=== PATIENT | male | born 1975 | race Two or more races ===

== ENCOUNTER 2017-08-18 13:09 | Emergency (ER) | payer MEDICAID, OTHER ==
--- NOTE | 2017-08-18 14:18 | EDPHY ---
H & P Stated Complaint: rectal pain with BM Time Seen by Provider: 08/18/17 14:00 HPI/ROS: CHIEF COMPLAINT: "I feel like I have to go to the bathroom all the time" HISTORY OF PRESENT ILLNESS: 41-year-old male history of ulcerative colitis, followed by Gastroenterology at [facility], complaining of 3 weeks of progressive tenesmus . No fever or chills. No nausea or vomiting. No abdominal pain. No genitalia complaints, no dysuria no hematuria increased frequency. REVIEW OF SYSTEMS: A ten point review of systems was performed and is negative with the exception of the items mentioned in the HPI PAST MEDICAL & SURGICAL HISTORY: Ulcerative colitis. On Q8 week Entyvio treatments SOCIAL HISTORY: Nonsmoker. PHYSICAL EXAM (Prior to examination, patient consented to physical exam, hands were washed and my usual and customary physical exam procedures followed) 1) GENERAL: Well-developed, well-nourished, alert and oriented. Appears to be in no acute distress. 2) HEAD: Normocephalic, atraumatic 3) HEENT: Pupils equal, round, reactive to light bilaterally. Sclera anicteric. [Nasopharynx, oropharynx, clear, no lesions. Moist mucous membranes 4) NECK: Full range of motion, no meningeal signs. 5) LUNGS: Clear auscultation bilaterally, no wheezes, no rhonchi, no retractions. 6) HEART: Regular rate and rhythm, no murmur, no heave, no gallop. 7) ABDOMEN: No guarding, no rebound, no focal tenderness, negative McBurney's, negative Metz's, negative Rovsing's, negative peritoneal sign, 8) MUSCULOSKELETAL: Moving all extremities, no focal areas of tenderness, no obvious trauma. No peripheral edema or discoloration. 9) BACK: No CVA tenderness, no midline vertebral tenderness, no fluctuance, no step-off, no obvious trauma, no visual or palpable abnormality. 10) SKIN: No rash, no petechiae. 11) : Circumcised no testicular pain. No perineal pain or fluctuance. No scrotal abnormality such as Aaliyah's gangrene. Rectal examination reveals no prostatic enlargement or tenderness. DIFFERENTIAL DIAGNOSIS: In no particular order including but not limited to prostatitis, perirectal abscess, diverticulitis, diverticular abscess - Personal History Current Tetanus/Diphtheria Vaccine: Yes Current Tetanus Diphtheria and Acellular Pertussis (TDAP): Yes - Medical/Surgical History Hx Asthma: No Hx Chronic Respiratory Disease: No Hx Diabetes: No Hx Cardiac Disease: No Hx Renal Disease: No Hx Cirrhosis: No Hx Alcoholism: No Hx HIV/AIDS: No Hx Splenectomy or Spleen Trauma: No Other PMH: Ulcerative colitis - Social History Smoking Status: Never smoked Constitutional: Initial Vital Signs Temperature (C) 37 C 08/18/17 13:17 Heart Rate 92 08/18/17 13:17 Respiratory Rate 16 08/18/17 13:17 Blood Pressure 144/84 H 08/18/17 13:17 O2 Sat (%) 95 08/18/17 13:17 O2 Delivery Mode Room Air Allergies/Adverse Reactions: No Known Allergies Allergy (Verified 08/18/17 13:15) Home Medications: Medication Instructions Recorded Bentyl 10 MG (*) 08/18/17 Medical Decision Making - Diagnostics Imaging Results: Imaging Impressions Abdomen CT 08/18/17 14:44 Impression: 1. Possible mild long segment of wall thickening in the rectosigmoid junction, with no surrounding inflammatory change. Small lymph nodes in the perirectal fat, which could be from chronic inflammation. No evidence for a perirectal abscess. 2. Fatty infiltration of the liver. Results called and discussed with Kaveh Judge PA-C, at August 18, 2017 at 1518. Images reviewed myself ED Course/Re-evaluation: Patient re-evaluated with serial examinations. Most recently at 3:57 p.m. The patient appears well. Discussed his diagnostic studies showing no evidence of perirectal abscess, no evidence of diverticulitis or diverticular abscess. Doubt acute surgical abdominal pathology. At this time I do not identify indication for hospitalization or emergent GI consultation. I did recommend he follow up with supply chain engineer at [facility] in the next few days (today is ). He feels comfortable with this plan. Usual customary abdominal precautions instructions provided. Care of patient under supervision of secondary supervising physician Dr Pritchard . - Data Points Laboratory Results: Laboratory Results 08/18/17 14:30 08/18/17 14:30 08/18/17 08/18/17 08/18/17 14:32 14:30 14:30 WBC 6.05 10^3/uL 10^3/uL (3.80-9.50) RBC 5.20 10^6/uL 10^6/uL (4.40-6.38) Hgb 15.3 g/dL g/dL (13.7-17.5) POC Hgb 14.6 gm/dL gm/dL (13.7-17.5) Hct 43.3 % % (40.0-51.0) POC Hct 43 % % (40-51) MCV 83.3 fL fL (81.5-99.8) MCH 29.4 pg pg (27.9-34.1) MCHC 35.3 g/dL g/dL (32.4-36.7) RDW 13.5 % % (11.5-15.2) Plt Count 213 10^3/uL 10^3/uL (150-400) MPV 9.1 fL fL (8.7-11.7) Neut % (Auto) 52.2 % % (39.3-74.2) Lymph % (Auto) 34.7 % % (15.0-45.0) Sterling % (Auto) 10.4 % % (4.5-13.0) Eos % (Auto) 1.5 % % (0.6-7.6) Baso % (Auto) 0.7 % % (0.3-1.7) Nucleat RBC Rel Count 0.0 % % (0.0-0.2) Absolute Neuts (auto) 3.16 10^3/uL 10^3/uL (1.70-6.50) Absolute Lymphs (auto) 2.10 10^3/uL 10^3/uL (1.00-3.00) Absolute Monos (auto) 0.63 10^3/uL 10^3/uL (0.30-0.80) Absolute Eos (auto) 0.09 10^3/uL 10^3/uL (0.03-0.40) Absolute Basos (auto) 0.04 10^3/uL 10^3/uL (0.02-0.10) Absolute Nucleated RBC 0.00 10^3/uL 10^3/uL (0-0.01) Immature Gran % 0.5 % % (0.0-1.1) Immature Gran # 0.03 10^3/uL 10^3/uL (0.00-0.10) POC Sodium 143 mEq/L mEq/L (135-145) Sodium 141 mEq/L mEq/L (135-145) POC Potassium 4.2 mEq/L mEq/L (3.3-5.0) Potassium 4.5 mEq/L mEq/L (3.5-5.2) POC Chloride 104 mEq/L mEq/L (97-110) Chloride 105 mEq/L mEq/L (97-110) Carbon Dioxide 26 mEq/l mEq/l (22-31) Anion Gap 10 mEq/L mEq/L (8-16) POC BUN 8 mg/dL mg/dL (7-23) BUN 9 mg/dL mg/dL (7-23) Creatinine 0.8 mg/dL mg/dL (0.7-1.3) POC Creatinine 0.8 mg/dL mg/dL (0.7-1.3) Estimated GFR > 60 Glucose 85 mg/dL mg/dL (70-100) POC Glucose 89 mg/dL mg/dL (70-100) Calcium 9.5 mg/dL mg/dL (8.5-10.4) Point of Care Test Results: 08/18/17 14:32 POC Sodium 143 POC Potassium 4.2 POC Chloride 104 POC BUN 8 POC Creatinine 0.8 POC Glucose 89 Departure - Departure Disposition: Home, Routine, Self-Care Clinical Impression: Rectal tenesmus Condition: Good Instructions: Rectal Pain (ED) Additional Instructions: Return to the ER if you develop abdominal pain nausea vomiting or any other symptoms that concern you. Referrals: [facility] [Other] - 1-2 days without fail
[2017-08-18 14:38] LABS: PLATELET COUNT 213 10^3/uL (150-400)
[2017-08-18] MEDS ORDERED: IOPAMIDOL (ISOVUE-300) 100 ML BTL ONE (14:48)
[2017-08-18 16:44] VITALS: BP 138/79
== END 2017-08-18 16:44 | disposition home or self-care (01) ==
DX: R19.8 Other specified symptoms and signs involving the digestive system and abdomen (principal)
CPT/HCPCS: 82947-QW; Q9967